=== PATIENT | male | born 1955 | race Caucasian/White ===

== ENCOUNTER → 2016-12-05 | Outpatient (CLI) | payer BC ==
[2016-12-05 17:27] LABS: Basophils # (A) 0.1 k/uL (0-0.2); Basophils % (A) 1 %; CH 32.6; CHCM 33.5; Eosinophils # (A) 0.2 k/uL (0-0.7); Eosinophils % (A) 3 %; HCT 35.4 % (39.0-53.0); HDW 2.67; HGB 11.9 gm/dL (13.0-17.5); Luc # (Auto) 0.29; Luc % (Auto) 4; Lymphocytes # (A) 2.9 k/uL (1.0-4.8); Lymphocytes % (A) 36 %; MCH 32.9 pg (25.0-35.0); MCHC 33.7 g/dL (31.0-37.0); MCV 97.6 fL (80.0-100.0); Mean Platelet Volume 7.5; Monocytes # (A) 0.5 k/uL (0-1.0); Monocytes % (A) 6 %; Neutrophils # (A) 4.1 k/uL (1.3-7.7); Neutrophils % (A) 51 %; RBC 3.63 m/uL (4.30-5.90); RDW 14.2 % (11.5-15.5); WBC 8.1 k/uL (3.8-10.6); WBC (Perox) 8.58
[2016-12-05 17:43] LABS: Anion Gap 10 mmol/L; Blood Urea Nitrogen 46 mg/dL (9-20); Calcium 9.6 mg/dL (8.4-10.2); Carbon Dioxide 28 mmol/L (22-30); Chloride 102 mmol/L (98-107); Glucose 174 mg/dL (74-99); Iron 66 ug/dL (49-181); Magnesium 1.9 mg/dL (1.6-2.3); Non-African American GFR(MDRD) >60 (>60 ml/min/1.73 sqM); Phosphorous 3.6 mg/dL (2.5-4.5); Potassium 4.7 mmol/L (3.5-5.1); Sodium 140 mmol/L (137-145); Uric Acid 7.2 mg/dL (3.5-8.5)
[2016-12-05 17:53] LABS: % Iron Saturation 19.1 % (20-50); Total Iron Binding Capacity 346 ug/dL (261-462)
[2016-12-05 17:58] LABS: Appearance,Urine Clear (Clear); Bacteria,Urine Rare /hpf; Bilirubin,Urine Negative (Negative); Glucose,Urine (UA) Negative (Negative); Ketones,Urine Negative (Negative); Leukocyte Esterase,Urine Large (Negative); Nitrite,Urine Negative (Negative); Particle Count 1687; Protein,Urine Negative (Negative); RBC,Urine 1 /hpf (0-5); Squamous Epithelial Cell,Urine 1 /hpf (0-4); UA Billing (MACRO vs. MICRO) MICRO; Urobilinogen,Urine <2.0 mg/dL (<2.0); WBC,Urine 19 /hpf (0-5)
== END | disposition home or self-care (01) ==
LOC: LABWHC1 16:47
PROVIDERS: ATTEND Internal Medicine Nephrology
DX: N18.2 Chronic kidney disease, stage 2 (mild) (principal); D64.9 Anemia, unspecified; E55.9 Vitamin D deficiency, unspecified; N25.81 Secondary hyperparathyroidism of renal origin; M10.9 Gout, unspecified; N39.0 Urinary tract infection, site not specified
CPT/HCPCS: 36415; 80048; 81001; 82306; 82728; 83540; 83550; 83735; 83970; 84100; 84550; 85025

== ENCOUNTER → 2017-12-16 | Outpatient (CLI) | payer BC ==
[2017-12-16 14:55] LABS: Basophils # (A) 0.1 k/uL (0-0.2); Basophils % (A) 1 %; Eosinophils # (A) 0.2 k/uL (0-0.7); Eosinophils % (A) 2 %; HCT 34.5 % (39.0-53.0); HGB 11.3 gm/dL (13.0-17.5); Lymphocytes # (A) 3.4 k/uL (1.0-4.8); Lymphocytes % (A) 43 %; MCH 29.3 pg (25.0-35.0); MCHC 32.9 g/dL (31.0-37.0); Mean Platelet Volume 7.5; Monocytes # (A) 0.3 k/uL (0-1.0); Monocytes % (A) 4 %; Neutrophils # (A) 3.9 k/uL (1.3-7.7); Neutrophils % (A) 49 %; Platelet Count 215 k/uL (150-450); RBC 3.87 m/uL (4.30-5.90); RDW 14.9 % (11.5-15.5); WBC 7.9 k/uL (3.8-10.6)
[2017-12-16 15:07] LABS: Calcium 10.4 mg/dL (8.4-10.2); Phosphorus 4.3 mg/dL (2.5-4.5); Potassium 4.8 mmol/L (3.5-5.1); Uric Acid 7.5 mg/dL (3.5-8.5)
[2017-12-16 15:12] LABS: Appearance,Urine Clear (Clear); Bacteria,Urine Rare /hpf; Bilirubin,Urine Negative (Negative); Blood,Urine Negative (Negative); Color,Urine Light Yellow; Glucose,Urine (UA) 2+ (Negative); Hyaline Casts,Urine 4 /lpf (0-2); Ketones,Urine Negative (Negative); Leukocyte Esterase,Urine Large (Negative); Mucus,Urine Rare /hpf; Nitrite,Urine Negative (Negative); Protein,Urine Negative (Negative); RBC,Urine 1 /hpf (0-5); Squamous Epithelial Cell,Urine 1 /hpf (0-4); Urobilinogen,Urine <2.0 mg/dL (<2.0); WBC,Urine 7 /hpf (0-5)
[2017-12-16 18:40] LABS: Iron Saturation 11.46 (15.00-50.00)
[2017-12-16 18:49] LABS: Vitamin D 25 Hydroxy 47.8 ng/mL (30.0-100.0)
[2017-12-16 19:00] LABS: Parathyroid Hormone Intact 32.8 pg/mL (14.0-72.0)
== END | disposition home or self-care (01) ==
LOC: LABWHC1 14:17
PROVIDERS: ATTEND Internal Medicine Nephrology
DX: N18.2 Chronic kidney disease, stage 2 (mild) (principal); D64.9 Anemia, unspecified; E55.9 Vitamin D deficiency, unspecified; N25.81 Secondary hyperparathyroidism of renal origin; M10.9 Gout, unspecified; N39.0 Urinary tract infection, site not specified
CPT/HCPCS: 36415; 80048; 81001; 82306; 82728; 83540; 83550; 83735; 83970; 84100; 84550; 85025

== ENCOUNTER → 2018-01-08 | Outpatient (CLI) | payer BC ==
--- NOTE | 2018-01-09 07:09 | US ---
EXAMINATION TYPE: US kidneys/renal and bladder DATE OF EXAM: 01/08/2018 COMPARISON: Renal ultrasound 2012 CLINICAL HISTORY: N18.2 CKD. large body habitus EXAM MEASUREMENTS: Right Kidney: 11.0 x 6.6 x 6.0 cm Left Kidney: 11.3 x 5.8 x 6.4 cm Post Void Residual Volume: 27.4 mL Right Kidney: small cyst mid 1.2 x 1.0 x 0.8 cm Left Kidney: small cyst mid 1.3 x 1.0 x 0.9 cm Bladder: wnl Bilateral Jets seen: No Normal Post Void Residual: Yes There is no evidence for hydronephrosis at this point in time in either kidney. No nephrolithiasis i s seen. Technologist garcia 2 small simple appearing cysts in both kidneys mid pole level. The urinar y bladder is not greatly distended. Bilateral ureteral jets are not seen. IMPRESSION: No hydronephrosis is evident bilaterally.
== END | disposition home or self-care (01) ==
LOC: RADUSWWP 15:16
PROVIDERS: ATTEND Internal Medicine Nephrology
DX: N18.2 Chronic kidney disease, stage 2 (mild) (principal)
CPT/HCPCS: 76770

== ENCOUNTER → 2018-02-18 | Outpatient (CLI) | payer BC ==
[2018-02-18 15:19] LABS: Appearance,Urine Clear (Clear); Bacteria,Urine Rare /hpf; Bilirubin,Urine Negative (Negative); Blood,Urine Negative (Negative); Color,Urine Light Yellow; Glucose,Urine (UA) Negative (Negative); Hyaline Casts,Urine 25 /lpf (0-2); Ketones,Urine Negative (Negative); Leukocyte Esterase,Urine Small (Negative); Mucus,Urine Rare /hpf; Nitrite,Urine Negative (Negative); Protein,Urine Negative (Negative); RBC,Urine <1 /hpf (0-5); Specific Gravity,Urine 1.011 (1.001-1.035); Squamous Epithelial Cell,Urine 1 /hpf (0-4); Urobilinogen,Urine <2.0 mg/dL (<2.0); WBC,Urine 2 /hpf (0-5)
[2018-02-18 15:24] LABS: Calcium 9.4 mg/dL (8.4-10.2); Magnesium 1.7 mg/dL (1.6-2.3); Phosphorus 5.8 mg/dL (2.5-4.5); Potassium 4.7 mmol/L (3.5-5.1); Uric Acid 6.5 mg/dL (3.5-8.5)
[2018-02-18 16:01] LABS: Anisocytosis Slight; Basophils % (A) 1 %; Eosinophils # (A) 0.2 k/uL (0-0.7); Eosinophils % (A) 3 %; HCT 36.7 % (39.0-53.0); HGB 12.2 gm/dL (13.0-17.5); Lymphocytes # (A) 2.5 k/uL (1.0-4.8); Lymphocytes % (A) 38 %; MCH 31.4 pg (25.0-35.0); MCHC 33.3 g/dL (31.0-37.0); Mean Platelet Volume 8.1; Monocytes # (A) 0.4 k/uL (0-1.0); Monocytes % (A) 6 %; Neutrophils # (A) 3.2 k/uL (1.3-7.7); Neutrophils % (A) 49 %; Platelet Count 186 k/uL (150-450); RBC 3.89 m/uL (4.30-5.90); RDW 16.3 % (11.5-15.5); WBC 6.4 k/uL (3.8-10.6)
[2018-02-18 16:03] LABS: MCV 94.2 fL (80.0-100.0)
== END | disposition home or self-care (01) ==
LOC: LABWHC1 14:45
PROVIDERS: ATTEND Internal Medicine Nephrology
DX: N18.2 Chronic kidney disease, stage 2 (mild) (principal); M10.9 Gout, unspecified; N39.0 Urinary tract infection, site not specified
CPT/HCPCS: 36415; 80048; 81001; 82728; 83540; 83550; 83735; 84100; 84550; 85025

== ENCOUNTER 2018-08-28 12:50 | Observation (INO) | payer BC, MEDICARE ==
[2018-08-28] MEDS ORDERED: SODIUM CHLORIDE 0.9% 1,000 ML IV STA (13:09)
[2018-08-28] MEDS ORDERED: NITROGLYCERIN SL TABS 0.4 MG TAB SUBLINGUAL STA (13:09)
[2018-08-28] MEDS ORDERED: ASPIRIN 81 MG PO STA (13:09)
--- NOTE | 2018-08-28 13:43 | ED ---
General Adult HPI <Naresh Trevino - Last Filed: 08/28/18 15:05> - General Source: patient, RN notes reviewed, old records reviewed Mode of arrival: wheelchair Limitations: no limitations <Kaushal Raymundo - Last Filed: 08/28/18 15:50> - General Chief complaint: Chest Pain Stated complaint: abn EKG Time Seen by Provider: 08/28/18 13:03 - History of Present Illness Initial comments: Patient 63-year-old male presented to the emergency room today from his doctor' s office for abnormal EKG. Patient does admit that he's been expressing some chest pain over the last month. Patient states he been trying to follow-up with his length control tester. Patient states he had an appointment this week but was canceled due to the bad weather. Patient states this felt some pressure in his chest that comes and goes. Worse with exertion. He feels short of breath with this. Describes it as pressure. Currently rates it a 2/10. Patient denies any recent fever, chills, back pain, abdominal pain, nausea or vomiting, numbness or tingling, headaches or visual changes, or any other complaints. (Kaushal Raymundo) - Related Data Home Medications Medication Instructions Recorded Confirmed Allopurinol [Zyloprim] 200 mg PO DAILY 01/02/18 08/28/18 Aspirin [Adult Low Dose Aspirin EC] 81 mg PO BID 01/02/18 08/28/18 Cholecalciferol (Vitamin D3) 2,000 unit PO DAILY 01/02/18 08/28/18 [Vitamin D3] Dorzolamide-Timol 2.23%/0.68% 1 drop BOTH EYES BID 01/02/18 08/28/18 [dorzolamide-Timolol 2%/0.5%] Enalapril [Vasotec] 10 mg PO DAILY 01/02/18 08/28/18 Furosemide [Lasix] 20 mg PO HS 01/02/18 08/28/18 Furosemide [Lasix] 40 mg PO DAILY 01/02/18 08/28/18 Insulin Aspart [NovoLOG Flexpen] 70 units SQ AC-TID 01/02/18 08/28/18 Latanoprost [Xalatan 0.005%] 1 drop BOTH EYES HS 01/02/18 08/28/18 Metolazone [Zaroxolyn] 2.5 mg PO MOWEFR 01/02/18 08/28/18 Metoprolol Tartrate [Lopressor] 50 mg PO BID 01/02/18 08/28/18 [place]-3 Fatty Acids/Fish Oil [Fish 1 each PO DAILY 01/02/18 08/28/18 Oil 1,000 mg Softgel] Simvastatin [Zocor] 40 mg PO HS 01/02/18 08/28/18 Insulin Glargine,Hum.rec.anlog 130 unit SQ HS 08/28/18 08/28/18 [Basaglar Kwikpen U-100] Omeprazole 20 mg PO DAILY 08/28/18 08/28/18 Allergies Allergy/AdvReac Type Severity Reaction Status Date / Time No Known Allergies Allergy Verified 08/28/18 13:23 Review of Systems ROS Other: All systems not noted in ROS Statement are negative. <Naresh Trevino - Last Filed: 08/28/18 15:05> ROS Other: All systems not noted in ROS Statement are negative. <Kaushal Raymundo - Last Filed: 08/28/18 15:50> ROS Statement: Those systems with pertinent positive or pertinent negative responses have been documented in the HPI. Past Medical History Past Medical History: Coronary Artery Disease (CAD), Diabetes Mellitus, Hyperlipidemia, Hypertension History of Any Multi-Drug Resistant Organisms: None Reported Past Surgical History: Heart Catheterization With Stent, Orthopedic Surgery Additional Past Surgical History / Comment(s): SHOULDER SURGERY Past Psychological History: No Psychological Hx Reported Smoking Status: Former smoker Past Alcohol Use History: Occasional Past Drug Use History: Marijuana <Kaushal Raymundo - Last Filed: 08/28/18 15:50> General Exam <Naresh Trevino - Last Filed: 08/28/18 15:05> Limitations: no limitations <Kaushal Raymundo - Last Filed: 08/28/18 15:50> - General Exam Comments Initial Comments: General: The patient is awake and alert, in no distress, and does not appear acutely ill. Eye: There is normal conjunctiva bilaterally. No signs of icterus. Ears, nose, mouth and throat: There are moist mucous membranes and no oral lesions. Neck: The neck is supple, there is no tenderness or JVD. Cardiovascular: There is a regular rate and rhythm. No murmur, rub or gallop is appreciated. Respiratory: Lungs are clear to auscultation, respirations are non-labored, breath sounds are equal. No wheezes, stridor, rales, or rhonchi. Gastrointestinal: Soft, non-distended, non-tender abdomen without masses or organomegaly noted. There is no rebound or guarding present. No CVA tenderness Musculoskeletal: Normal ROM, no tenderness. Strength 5/5. Sensation intact. Pulses equal bilaterally 2+. Neurological: A&O x 3. CN II-XII intact, There are no obvious motor or sensory deficits. Coordination appears grossly intact. Speech is normal. Skin: Skin is warm and dry and no rashes or lesions are noted. Psychiatric: Cooperative, appropriate mood & affect, normal judgment. (Kaushal Raymundo) Vital Signs 08/28/18 08/28/18 08/28/18 12:54 13:30 14:00 Temperature 97.9 F Pulse Rate 74 73 73 Respiratory 16 20 20 Rate Blood Pressure 154/88 136/55 129/60 O2 Sat by Pulse 97 98 96 Oximetry 08/28/18 08/28/18 14:30 15:00 Temperature Pulse Rate 72 69 Respiratory 18 22 Rate Blood Pressure 116/72 130/70 O2 Sat by Pulse 95 98 Oximetry Medical Decision Making - Lab Data Result diagrams: 08/28/18 13:17 08/28/18 13:17 <Naresh Trevino - Last Filed: 08/28/18 15:05> - Lab Data Result diagrams: 08/28/18 13:17 08/28/18 13:17 <Kaushal Raymundo - Last Filed: 08/28/18 15:50> - Medical Decision Making Case was discussed with Dr. Hensley who did see this patient earlier and is familiar with him. He will admit. (Naresh Trevino) Patient reexamined at this times no signs of distress. Does admit to some improvement after nitro given here in the emergency room. Patient is resting comfortably. Patient case was discussed with attending Dr. Trevino did discuss with Dr. Hensley who recommends admission with consult cardiology. This was discussed with the patient. He states that his insurance does not cover for observation. Patient is not willing to stay in the admission is for observation. Was discussed in detail about concern that he should stay in the hospital. Patient states he does have an appointment with his length control tester will plan to follow-up over return if any symptoms increase worsen. (Kaushal Raymundo) - Lab Data Lab Results 08/28/18 08/28/18 08/28/18 Range/Units 13:17 13:17 13:17 WBC 9.2 (3.8-10.6) k/uL RBC 3.92 L (4.30-5.90) m/uL Hgb 12.2 L (13.0-17.5) gm/dL Hct 37.3 L (39.0-53.0) % MCV 94.9 (80.0-100.0) fL MCH 31.0 (25.0-35.0) pg MCHC 32.6 (31.0-37.0) g/dL RDW 14.4 (11.5-15.5) % Plt Count 169 (150-450) k/uL Neutrophils % 61 % Lymphocytes % 26 % Monocytes % 7 % Eosinophils % 2 % Basophils % 1 % Neutrophils # 5.6 (1.3-7.7) k/uL Lymphocytes # 2.4 (1.0-4.8) k/uL Monocytes # 0.6 (0-1.0) k/uL Eosinophils # 0.2 (0-0.7) k/uL Basophils # 0.1 (0-0.2) k/uL PT (9.0-12.0) sec INR (<1.2) APTT (22.0-30.0) sec Sodium 143 (137-145) mmol/L Potassium 4.4 (3.5-5.1) mmol/L Chloride 106 (98-107) mmol/L Carbon Dioxide 26 (22-30) mmol/L Anion Gap 11 mmol/L BUN 50 H (9-20) mg/dL Creatinine 1.25 (0.66-1.25) mg/dL Est GFR (CKD-EPI)AfAm 72 (>60 ml/min/1.73 sqM) Est GFR (CKD-EPI)NonAf 62 (>60 ml/min/1.73 sqM) Glucose 151 H (74-99) mg/dL Calcium 10.3 H (8.4-10.2) mg/dL Magnesium 1.7 (1.6-2.3) mg/dL Total Bilirubin 0.7 (0.2-1.3) mg/dL AST 106 H (17-59) U/L ALT 114 H (21-72) U/L Alkaline Phosphatase 89 (38-126) U/L Total Creatine Kinase 234 H (55-170) U/L CK-MB (CK-2) 1.7 (0.0-2.4) ng/mL CK-MB (CK-2) Rel Index 0.7 Troponin I 0.029 (0.000-0.034) ng/mL Total Protein 7.3 (6.3-8.2) g/dL Albumin 4.1 (3.5-5.0) g/dL 08/28/18 Range/Units 13:17 WBC (3.8-10.6) k/uL RBC (4.30-5.90) m/uL Hgb (13.0-17.5) gm/dL Hct (39.0-53.0) % MCV (80.0-100.0) fL MCH (25.0-35.0) pg MCHC (31.0-37.0) g/dL RDW (11.5-15.5) % Plt Count (150-450) k/uL Neutrophils % % Lymphocytes % % Monocytes % % Eosinophils % % Basophils % % Neutrophils # (1.3-7.7) k/uL Lymphocytes # (1.0-4.8) k/uL Monocytes # (0-1.0) k/uL Eosinophils # (0-0.7) k/uL Basophils # (0-0.2) k/uL PT 10.2 (9.0-12.0) sec INR 0.9 (<1.2) APTT 24.0 (22.0-30.0) sec Sodium (137-145) mmol/L Potassium (3.5-5.1) mmol/L Chloride (98-107) mmol/L Carbon Dioxide (22-30) mmol/L Anion Gap mmol/L BUN (9-20) mg/dL Creatinine (0.66-1.25) mg/dL Est GFR (CKD-EPI)AfAm (>60 ml/min/1.73 sqM) Est GFR (CKD-EPI)NonAf (>60 ml/min/1.73 sqM) Glucose (74-99) mg/dL Calcium (8.4-10.2) mg/dL Magnesium (1.6-2.3) mg/dL Total Bilirubin (0.2-1.3) mg/dL AST (17-59) U/L ALT (21-72) U/L Alkaline Phosphatase (38-126) U/L Total Creatine Kinase (55-170) U/L CK-MB (CK-2) (0.0-2.4) ng/mL CK-MB (CK-2) Rel Index Troponin I (0.000-0.034) ng/mL Total Protein (6.3-8.2) g/dL Albumin (3.5-5.0) g/dL Disposition <Naresh Trevino - Last Filed: 08/28/18 15:05> Is patient prescribed a controlled substance at d/c from ED?: No Time of Disposition: 15:30 <Kaushal Raymundo - Last Filed: 08/28/18 15:50> Clinical Impression: Chest pain Disposition: ADMITTED IP TO THIS HOSP Condition: Stable Referrals: Jake Hensley MD [Primary Care Provider] - 1-2 days
--- NOTE | 2018-08-28 13:45 | XR ---
EXAMINATION TYPE: XR chest 2V DATE OF EXAM: 08/28/2018 COMPARISON: 12/29/2015 TECHNIQUE: PA and lateral views submitted. HISTORY: Chest pain FINDINGS: The lungs are clear and there is no pneumothorax, pleural effusion, or focal pneumonia. Heart is en larged and stable. Arthropathy of the shoulders. No overt failure. IMPRESSION: 1. No acute process.
[2018-08-28 13:52] LABS: Basophils # (A) 0.1 k/uL (0-0.2); Basophils % (A) 1 %; Eosinophils # (A) 0.2 k/uL (0-0.7); Eosinophils % (A) 2 %; HCT 37.3 % (39.0-53.0); HGB 12.2 gm/dL (13.0-17.5); Lymphocytes # (A) 2.4 k/uL (1.0-4.8); Lymphocytes % (A) 26 %; MCHC 32.6 g/dL (31.0-37.0); MCV 94.9 fL (80.0-100.0); Mean Platelet Volume 8.3; Monocytes # (A) 0.6 k/uL (0-1.0); Monocytes % (A) 7 %; Neutrophils # (A) 5.6 k/uL (1.3-7.7); Neutrophils % (A) 61 %; Platelet Count 169 k/uL (150-450); RBC 3.92 m/uL (4.30-5.90); RDW 14.4 % (11.5-15.5); WBC 9.2 k/uL (3.8-10.6)
[2018-08-28 14:04] LABS: Albumin 4.1 g/dL (3.5-5.0); Calcium 10.3 mg/dL (8.4-10.2); Magnesium 1.7 mg/dL (1.6-2.3); Potassium 4.4 mmol/L (3.5-5.1); Total Bilirubin 0.7 mg/dL (0.2-1.3); Total Protein 7.3 g/dL (6.3-8.2)
[2018-08-28 14:06] LABS: INR 0.9 (<1.2); Prothrombin Time 10.2 sec (9.0-12.0)
[2018-08-28 14:32] LABS: Creatine Kinase MB 1.7 ng/mL (0.0-2.4); Troponin I 0.029 ng/mL (0.000-0.034)
[2018-08-28] MEDS ORDERED: NITROGLYCERIN SL TABS 0.4 MG TAB SUBLINGUAL PRN (15:32)
[2018-08-28] MEDS ORDERED: HEPARIN SODIUM,PORCINE 5,000 UNIT/ML 1 ML VIAL IV ONE (15:32)
[2018-08-28] MEDS ORDERED: HEPARIN SOD,PORK IN 0.45% NACL 25,000 UNIT in 0.45% NACL 1 250ML.BAG IV SCH (15:45)
[2018-08-28 18:04] VITALS: BMI 43.9
[2018-08-28 20:15] LABS: Creatine Kinase MB 1.8 ng/mL (0.0-2.4); Troponin I 0.025 ng/mL (0.000-0.034)
[2018-08-28 20:41] LABS: Glucose,Whole Blood 181 mg/dL (75-99)
[2018-08-28] MEDS: ASPIRIN 81 MG PO SCH (20:44)
[2018-08-28] MEDS: METOPROLOL TARTRATE 50 MG TAB PO SCH (20:44)
[2018-08-28] MEDS ORDERED: FUROSEMIDE 20 MG TAB PO SCH (21:00)
[2018-08-28] MEDS ORDERED: LATANOPROST 0.005% OPHTH DROPS 2.5 ML BTL BOTH EYES SCH (21:00)
[2018-08-28] MEDS ORDERED: ATORVASTATIN 20 MG TAB PO SCH (21:00)
[2018-08-28] MEDS ORDERED: INSULIN DETEMIR 100 UNIT/ML 10 ML VIAL SQ SCH (21:00)
[2018-08-28] MEDS: DORZOLAMIDE-TIMOLOL 2.23%/0.68 10ML BTL BOTH EYES SCH (23:04)
[2018-08-29 01:28] LABS: Cholesterol 176 mg/dL (<200); HDL Cholesterol 56 mg/dL (40-60); LDL Cholesterol,Calculated 86 mg/dL (0-99); Triglycerides 170 mg/dL (<150)
[2018-08-29 01:32] LABS: Hemoglobin A1C 9.6 % (4.0-6.0)
[2018-08-29 01:44] LABS: Creatine Kinase MB 1.5 ng/mL (0.0-2.4); Troponin I 0.026 ng/mL (0.000-0.034)
[2018-08-29 04:31] LABS: Appearance,Urine Clear (Clear); Bilirubin,Urine Negative (Negative); Blood,Urine Negative (Negative); Color,Urine Yellow; Glucose,Urine (UA) Negative (Negative); Ketones,Urine Negative (Negative); Leukocyte Esterase,Urine Negative (Negative); Nitrite,Urine Negative (Negative); PH, Urine 5.5 (5.0-8.0); Protein,Urine Negative (Negative); Specific Gravity,Urine 1.012 (1.001-1.035); Urobilinogen,Urine <2.0 mg/dL (<2.0)
[2018-08-29 06:51] LABS: Glucose,Whole Blood 183 mg/dL (75-99)
[2018-08-29] MEDS ORDERED: PANTOPRAZOLE 40 MG TABLET PO SCH (07:30)
[2018-08-29] MEDS ORDERED: LISINOPRIL 20 MG TAB PO SCH (09:00)
[2018-08-29] MEDS ORDERED: FUROSEMIDE 40 MG TAB PO SCH (09:00)
[2018-08-29] MEDS ORDERED: ASPIRIN 325 MG TAB PO SCH (09:00)
[2018-08-29] MEDS ORDERED: ALLOPURINOL 100 MG TAB PO SCH (09:00)
[2018-08-29] MEDS ORDERED: METOLAZONE 2.5 MG TAB PO SCH (09:00)
[2018-08-29] MEDS ORDERED: NON-FORMULARY DRUG (Omega-3 Fatty Acids/Fish Oil [Fish Oil 1,000 Mg Softgel] 1 EACH) PO SCH (09:00)
[2018-08-29] MEDS: INSULIN ASPART 100 UNIT/ML 1 ML 10 ML VIAL SQ SCH ×2 (09:13→13:01)
[2018-08-29] MEDS: ASPIRIN 81 MG PO SCH (09:14)
[2018-08-29] MEDS: DORZOLAMIDE-TIMOLOL 2.23%/0.68 10ML BTL BOTH EYES SCH (09:14)
[2018-08-29] MEDS: METOPROLOL TARTRATE 50 MG TAB PO SCH (09:14)
[2018-08-29] MEDS ORDERED: ISOSORBIDE MONONITRATE ER 60 MG TAB.ER.24H PO SCH (09:15)
--- NOTE | 2018-08-29 09:46 | P.CRDCN ---
History of Present Illness History of present illness: This is a pleasant 63-year-old male past medical history significant for coronary artery disease status post angioplasty to the circumflex in 2016 and the diagonal branch in 2007, hypertension, dyslipidemia, diabetes mellitus, chronic kidney disease, former nicotine dependence and obesity. He follows in the office with Dr. Lamar. We have been asked to see him in consultation for chest discomfort. He states for the previous 2-3 months he has felt increasing instances and episodes of a tight sensation in the midsternal region with radiation in the precordial region and left shoulder at times. He also becomes short of breath with exertion. He states these symptoms come on whenever he does any sort of activity and improve her breast. This has been going on for over 2 months. However he presented to Dr. Hensley's office yesterday and an EKG was obtained. He was sent to ED for evaluation. He is seen and examined laying flat in bed with CPAP machine in place. He denies any chest pain since coming to the hospital, however he states he hasn't gotten out of bed and exerted himself at all. He has seen Dr. Lamar in the past with similar complaints and maximal medical therapy has been recommended secondary to his chronic kidney disease. EKG reveals sinus mechanism with T-wave inversions noted in the lateral leads. When compared to previous EKGs he did have these changes in leads 1 and aVL previously however leads V5 and V6 appear changed. Chest x-ray is negative for any acute cardiopulmonary process. Laboratory data reviewed, LDL 86, HDL 56, WBC 9.2, hemoglobin 12.2, platelets 169, sodium 143, potassium 4.4, creatinine 1.25 with a GFR of 62, magnesium 1.7 , cardiac enzymes negative 3. Liver enzymes elevated. Current cardiac medications include aspirin 81 mg twice a day, enalapril 10 mg daily, Lasix 40 mg in the morning and 20 mg at night, metoprolol 2.5 mg Saturday, Lopressor 50 mg twice a day and simvastatin 40 mg daily. Most recent stress test performed in the office May 2017 with a Lexiscan stress test which was negative for reversible cardiac ischemia. Ejection fraction 55% on echo obtained at that time as well. At the time of my exam: CONSTITUTIONAL: Denies fever. Denies chills. EYES: Denies blurred vision. Denies vision changes. Denies eye pain. EARS, NOSE, MOUTH & THROAT: Denies headache. Denies sore throat. Denies ear pain. CARDIOVASCULAR: Denies chest pain. Denies shortness of breath. Denies orthopnea. Denies PND. Denies palpitations. RESPIRATORY: Denies cough. GASTROINTESTINAL: Denies abdominal pain. Denies diarrhea. Denies constipation. Denies nausea. Denies vomiting. MUSCULOSKELETAL: Denies myalgias. INTEGUMENTARY: Denies pruitis. Denies rash. NEUROLOGIC: Denies numbness. Denies tingling. Denies weakness. PSYCHIATRIC: Denies anxiety. Denies depression. ENDOCRINE: Denies fatigue. Denies weight change. Denies polydipsia. Denies polyurina. GENITOURINARY: Denies burning, hematuria or urgency with micturation. HEMATOLOGIC: Denies history of anemia. Denies bleeding. Blood pressure 157/97 heart rate 79 afebrile maintaining oxygen saturation on room air GENERAL: This is a 63-year-old male in no apparent distress at the time of my examination. Obese. HEENT: Head is atraumatic, normocephalic. Pupils are equal, round. Sclerae anicteric. Conjunctivae are clear. Mucous membranes of the mouth are moist. Neck is supple. There is no jugular venous distention. No carotid bruit is heard. LUNGS: Clear to auscultation no wheezes, rales or rhonchi. No chest wall tenderness is noted on palpation or with deep breathing. Diminished bilaterally. HEART: Regular rate and rhythm with systolic ejection murmur at the left sternal border, no rubs or gallops. S1 and S2 heard. ABDOMEN: Soft, nontender. Bowel sounds are heard. No organomegaly noted. Obese. EXTREMITIES: Trace bilateral lower extremity nonpitting peripheral edema and no calf tenderness noted. VASCULAR: Radial and dorsalis pedis pulses palpated, no evidence of clubbing. NEUROLOGIC: Patient is awake, alert and oriented x3. ASSESSMENT Unstable angina Hypertension Dyslipidemia Chronic kidney disease History of coronary artery disease status post PCI of circumflex and diagonal branch Diabetes mellitus Former nicotine dependence Obesity, BMI 44 PLAN An acute coronary event has been ruled out. Discussed in detail with his primary ground water contractor and he has recommended maximizing his medical therapy and increasing activity to assess for reoccurrence of chest discomfort. Check NTproBNP. Add on imdur 60 mg daily. Increase atorvastatin to 80 mg daily. If he is chest pain free throughout the day today he may be discharged home to follow up with Dr. Lamar in the office Saturday. If he has chest pain on maximum therapy we will consider coronary angiography with the understanding that the procedure may worse his chronic kidney disease. Thank you kindly for this consultation. Nurse Practitioner note has been reviewed, I agree with a documented findings and plan of care. Patient was seen and examined. Past Medical History Past Medical History: Coronary Artery Disease (CAD), Diabetes Mellitus, Hyperlipidemia, Hypertension History of Any Multi-Drug Resistant Organisms: None Reported Past Surgical History: Heart Catheterization With Stent, Orthopedic Surgery Additional Past Surgical History / Comment(s): SHOULDER SURGERY Date of Last Stent Placement:: 2005 Past Psychological History: No Psychological Hx Reported Smoking Status: Former smoker Past Alcohol Use History: Occasional Past Drug Use History: Marijuana Medications and Allergies Home Medications Medication Instructions Recorded Confirmed Type Allopurinol [Zyloprim] 200 mg PO DAILY 01/02/18 08/28/18 History Aspirin [Adult Low Dose Aspirin EC] 81 mg PO BID 01/02/18 08/28/18 History Cholecalciferol (Vitamin D3) 2,000 unit PO DAILY 01/02/18 08/28/18 History [Vitamin D3] Dorzolamide-Timol 2.23%/0.68% 1 drop BOTH EYES BID 01/02/18 08/28/18 History [dorzolamide-Timolol 2%/0.5%] Enalapril [Vasotec] 10 mg PO DAILY 01/02/18 08/28/18 History Furosemide [Lasix] 20 mg PO HS 01/02/18 08/28/18 History Furosemide [Lasix] 40 mg PO DAILY 01/02/18 08/28/18 History Insulin Aspart [NovoLOG Flexpen] 70 units SQ AC-TID 01/02/18 08/28/18 History Latanoprost [Xalatan 0.005%] 1 drop BOTH EYES HS 01/02/18 08/28/18 History Metolazone [Zaroxolyn] 2.5 mg PO MOWEFR 01/02/18 08/28/18 History Metoprolol Tartrate [Lopressor] 50 mg PO BID 01/02/18 08/28/18 History [place]-3 Fatty Acids/Fish Oil [Fish 1 each PO DAILY 01/02/18 08/28/18 History Oil 1,000 mg Softgel] Simvastatin [Zocor] 40 mg PO HS 01/02/18 08/28/18 History Insulin Glargine,Hum.rec.anlog 130 unit SQ HS 08/28/18 08/28/18 History [Basaglar Jaquelinepen U-100] Omeprazole 20 mg PO DAILY 08/28/18 08/28/18 History Allergies Allergy/AdvReac Type Severity Reaction Status Date / Time No Known Allergies Allergy Verified 08/28/18 13:23 Physical Exam Vitals: Vital Signs Temp Pulse Pulse Resp BP BP Pulse Ox 08/29/18 04:00 78 16 08/29/18 03:41 98.1 F 78 16 176/90 96 08/28/18 23:41 98.3 F 71 18 182/82 96 08/28/18 23:40 72 18 08/28/18 20:00 98.4 F 72 18 161/72 96 08/28/18 17:15 97.9 F 77 18 160/81 97 08/28/18 17:00 77 17 165/71 98 08/28/18 16:30 71 14 163/97 98 08/28/18 16:00 76 11 L 143/76 98 08/28/18 15:30 71 22 126/49 98 08/28/18 15:00 69 22 130/70 98 08/28/18 14:30 72 18 116/72 95 08/28/18 14:00 73 20 129/60 96 08/28/18 13:30 73 20 136/55 98 08/28/18 12:54 97.9 F 74 16 154/88 97 Intake and Output 08/28/18 08/29/18 08/29/18 22:59 06:59 14:59 Intake Total 72.167 Balance 72.167 Intake: Intake, IV Titration 72.167 Amount Heparin Sod,Pork in 0.45% 72.167 NaCl 25,000 unit In 0.45 % NaCl 1 250ml.bag @ 7. 399 UNITS/KG/HR 10 mls/hr IV .Q24H [facility] Rx#: [id number] Other: Voiding Method Toilet Toilet # Voids 2 Results 08/28/18 13:17 08/28/18 13:17 Cardiac Enzymes 08/28/18 08/28/18 08/28/18 Range/Units 13:17 13:17 19:22 AST 106 H (17-59) U/L CK-MB (CK-2) 1.7 1.8 (0.0-2.4) ng/mL Troponin I 0.029 0.025 (0.000-0.034) ng/mL 08/29/18 Range/Units 00:52 AST (17-59) U/L CK-MB (CK-2) 1.5 (0.0-2.4) ng/mL Troponin I 0.026 (0.000-0.034) ng/mL Coagulation 08/28/18 08/28/18 08/29/18 Range/Units 13:17 22:52 06:18 PT 10.2 (9.0-12.0) sec APTT 24.0 44.2 H 46.9 H (22.0-30.0) sec Lipids 08/29/18 Range/Units 00:52 Triglycerides 170 H (<150) mg/dL Cholesterol 176 (<200) mg/dL HDL Cholesterol 56 (40-60) mg/dL CBC 08/28/18 Range/Units 13:17 WBC 9.2 (3.8-10.6) k/uL RBC 3.92 L (4.30-5.90) m/uL Hgb 12.2 L (13.0-17.5) gm/dL Hct 37.3 L (39.0-53.0) % Plt Count 169 (150-450) k/uL Comprehensive Metabolic Panel 08/28/18 Range/Units 13:17 Sodium 143 (137-145) mmol/L Potassium 4.4 (3.5-5.1) mmol/L Chloride 106 (98-107) mmol/L Carbon Dioxide 26 (22-30) mmol/L BUN 50 H (9-20) mg/dL Creatinine 1.25 (0.66-1.25) mg/dL Glucose 151 H (74-99) mg/dL Calcium 10.3 H (8.4-10.2) mg/dL AST 106 H (17-59) U/L ALT 114 H (21-72) U/L Alkaline Phosphatase 89 (38-126) U/L Total Protein 7.3 (6.3-8.2) g/dL Albumin 4.1 (3.5-5.0) g/dL Current Medications Generic Name Dose Route Start Last Admin Trade Name Christiano PRN Reason Stop Dose Admin Allopurinol 200 mg 08/29/18 09:00 Zyloprim PO DAILY KIKI Aspirin 81 mg 08/28/18 21:00 08/28/18 20:44 Aspirin PO 81 mg BID KIKI Administration Atorvastatin Calcium 20 mg 08/28/18 21:00 08/28/18 20:44 Lipitor PO 20 mg HS KIKI Administration Cholecalciferol 2,000 unit 08/29/18 12:00 Vitamin D3 PO 1200 KIKI Dorzolamide/Timolol 1 drops 08/28/18 21:00 08/28/18 23:04 Cosopt BOTH EYES 1 drops BID KIKI Administration Furosemide 20 mg 08/28/18 21:00 08/28/18 20:44 Lasix PO 20 mg HS KIKI Administration Furosemide 40 mg 08/29/18 09:00 Lasix PO DAILY KIKI Sodium Chloride 1,000 mls @ 20 mls/hr 08/28/18 13:09 08/28/18 13:24 Saline 0.9% IV 08/29/18 13:08 20 mls/hr .Q24H STA Administration Heparin Sodium/Sodium Chloride 250 mls @ 10 mls/hr 08/28/18 15:45 08/29/18 00 :03 25,000 unit/ Sodium Chloride IV 9.399 units/kg/hr .Q24H KIKI 12.7 mls/hr Titration Protocol 7.399 UNITS/KG/HR Insulin Aspart 70 unit 08/29/18 07:30 Novolog SQ AC-TID [facility] Insulin Detemir 130 unit 08/28/18 21:00 08/28/18 21:12 Levemir SQ 130 unit HS [facility] Administration Latanoprost 1 drops 08/28/18 21:00 08/28/18 23:04 Xalatan 0.005% BOTH EYES 1 drops HS [facility] Administration Lisinopril 20 mg 08/29/18 09:00 Zestril PO DAILY [facility] Metolazone 2.5 mg 08/29/18 09:00 Zaroxolyn PO [id number] [facility] Metoprolol Tartrate 50 mg 08/28/18 21:00 08/28/18 20:44 Lopressor PO 50 mg BID KIKI Administration Nitroglycerin 0.4 mg 08/28/18 15:32 Nitrostat SUBLINGUAL Q5M PRN Chest Pain Pantoprazole Sodium 40 mg 08/29/18 07:30 Protonix PO AC-BRKFST [facility] Intake and Output 08/28/18 08/29/18 08/29/18 22:59 06:59 14:59 Intake Total 72.167 Balance 72.167 Intake: Intake, IV Titration 72.167 Amount Heparin Sod,Pork in 0.45% 72.167 NaCl 25,000 unit In 0.45 % NaCl 1 250ml.bag @ 7. 399 UNITS/KG/HR 10 mls/hr IV .Q24H [facility] Rx#: [id number] Other: Voiding Method Toilet Toilet # Voids 2 08/28/18 13:17 08/28/18 13:17
[2018-08-29 12:00] LABS: Glucose,Whole Blood 185 mg/dL (75-99)
[2018-08-29] MEDS ORDERED: CHOLECALCIFEROL 1,000 UNIT TAB PO SCH (12:00)
[2018-08-29 12:06] VITALS: BP 107/66; PULSE 69; RESP 16; TEMP 97.9
[2018-08-29] MEDS ORDERED: ATORVASTATIN 80 MG TAB PO SCH (21:00)
--- NOTE | 2018-08-30 09:15 | ECHOF ---
Referral Reason:cp, sob MEASUREMENTS -------- HEIGHT: 175.3 cm WEIGHT: 135.2 kg BP: IVSd: 1.4 cm (0.6 - 1.1) LVIDd: 5.1 cm (3.9 - 5.3) LVPWd: 1.5 cm (0.6 - 1.1) IVSs: 1.4 cm LVIDs: 3.6 cm LVPWs: 1.5 cm Ao Diam: 3.3 cm (2.0 - 3.7) LA Diam: 3.7 cm (2.7 - 3.8) EPSS: 0.3 cm MV E Art: 0.75 m/s MV DecT: 176 ms MV A Art: 0.77 m/s MV E/A Ratio: 0.97 RAP: 5.00 mmHg RVSP: 14.00 mmHg MV EF SLOPE: 58.37 mm/s (70 - 150) MV EXCURSION: 16.40 mm (> 18.000) FINDINGS -------- Sinus rhythm. Morbid Obesity This was a techncally difficult study with suboptimal views, , Lumason utilized for enhancement of im ages. The left ventricular size is normal. There is moderate concentric left ventricular hypertrophy. O verall left ventricular systolic function is normal with, an EF between 55 - 60 %. The right ventricle is normal in size. The left atrial size is normal. The right atrial size is normal. 5.0mg OF Lumason UTLIZED: 2 OR MORE WALL SEGMENTS NOT VISUALIZED. The aortic valve was not well visualized. Mild mitral regurgitation is present. Mild tricuspid regurgitation present. There is no evidence of pulmonary hypertension. The right v entricular systolic pressure, as measured by Doppler, is 14.00mmHg. The pulmonic valve was not well visualized. The aortic root size is normal. There is no pericardial effusion. CONCLUSIONS -------- 1. Morbid Obesity 2. This was a techncally difficult study with suboptimal views, , Lumason utilized for enhancement of images. 3. The left ventricular size is normal. 4. There is moderate concentric left ventricular hypertrophy. 5. Overall left ventricular systolic function is normal with, an EF between 55 - 60 %. 6. The right ventricle is normal in size. 7. The left atrial size is normal. 8. The right atrial size is normal. 9. 5.0mg OF Lumason UTLIZED: 2 OR MORE WALL SEGMENTS NOT VISUALIZED. 10. The aortic valve was not well visualized. 11. Mild mitral regurgitation is present. 12. Mild tricuspid regurgitation present. 13. There is no evidence of pulmonary hypertension. 14. The right ventricular systolic pressure, as measured by Doppler, is 14.00mmHg. 15. The pulmonic valve was not well visualized. 16. The aortic root size is normal. 17. There is no pericardial effusion. BOX TRUCK WASHER: Radha Bassett RDCS
--- NOTE | 2018-09-01 20:48 | P.HPIM ---
History of Present Illness H&P Date: 08/29/18 Chief Complaint: Chest pain This is a history of physical 63-year-old white male with poorly controlled diabetes who has history of recurrent chronic bronchitis, who saw me yesterday office complaining of dysuria with elements of sternal and substernal chest pressure. Shortness breath is noted. No nausea and question element of diaphoresis was stated. EKG was done Office which did show nonspecific lateral changes, but given his multiple comorbidities he was appropriately evaluated in the emergency room and admitted for chest pain question angina element. The patient is nonsmoker. Review of Systems Constitutional: Reports weakness Eyes: denies blurred vision, denies pain Ears, nose, mouth and throat: Denies headache, Denies sore throat Cardiovascular: Reports chest pain, Denies leg edema, Denies syncope Respiratory: Denies cough Gastrointestinal: Denies abdominal pain, Denies diarrhea, Denies nausea, Denies vomiting Musculoskeletal: Denies myalgias Integumentary: Denies pruritus, Denies rash Past Medical History Past Medical History: Coronary Artery Disease (CAD), Diabetes Mellitus, Hyperlipidemia, Hypertension History of Any Multi-Drug Resistant Organisms: None Reported Past Surgical History: Heart Catheterization With Stent, Orthopedic Surgery Additional Past Surgical History / Comment(s): SHOULDER SURGERY Date of Last Stent Placement:: 2005 Past Psychological History: No Psychological Hx Reported Smoking Status: Former smoker Past Alcohol Use History: Occasional Past Drug Use History: Marijuana Medications and Allergies Home Medications Medication Instructions Recorded Confirmed Type Allopurinol [Zyloprim] 200 mg PO DAILY 01/02/18 08/28/18 History Aspirin [Adult Low Dose Aspirin EC] 81 mg PO BID 01/02/18 08/28/18 History Cholecalciferol (Vitamin D3) 2,000 unit PO DAILY 01/02/18 08/28/18 History [Vitamin D3] Dorzolamide-Timol 2.23%/0.68% 1 drop BOTH EYES BID 01/02/18 08/28/18 History [dorzolamide-Timolol 2%/0.5%] Enalapril [Vasotec] 10 mg PO DAILY 01/02/18 08/28/18 History Furosemide [Lasix] 20 mg PO HS 01/02/18 08/28/18 History Furosemide [Lasix] 40 mg PO DAILY 01/02/18 08/28/18 History Insulin Aspart [NovoLOG Flexpen] 70 units SQ AC-TID 01/02/18 08/28/18 History Latanoprost [Xalatan 0.005%] 1 drop BOTH EYES HS 01/02/18 08/28/18 History Metolazone [Zaroxolyn] 2.5 mg PO MOWEFR 01/02/18 08/28/18 History Metoprolol Tartrate [Lopressor] 50 mg PO BID 01/02/18 08/28/18 History [place]-3 Fatty Acids/Fish Oil [Fish 1 each PO DAILY 01/02/18 08/28/18 History Oil 1,000 mg Softgel] Simvastatin [Zocor] 40 mg PO HS 01/02/18 08/28/18 History Insulin Glargine,Hum.rec.anlog 130 unit SQ HS 08/28/18 08/28/18 History [Basaglar Kwikpen U-100] Omeprazole 20 mg PO DAILY 08/28/18 08/28/18 History Allergies Allergy/AdvReac Type Severity Reaction Status Date / Time No Known Allergies Allergy Verified 08/28/18 13:23 Physical Exam Vitals: Vital Signs Temp Pulse Pulse Resp BP BP Pulse Ox 08/29/18 04:00 78 16 08/29/18 03:41 98.1 F 78 16 176/90 96 08/28/18 23:41 98.3 F 71 18 182/82 96 08/28/18 23:40 72 18 08/28/18 20:00 98.4 F 72 18 161/72 96 08/28/18 17:15 97.9 F 77 18 160/81 97 08/28/18 17:00 77 17 165/71 98 08/28/18 16:30 71 14 163/97 98 08/28/18 16:00 76 11 L 143/76 98 08/28/18 15:30 71 22 126/49 98 08/28/18 15:00 69 22 130/70 98 08/28/18 14:30 72 18 116/72 95 08/28/18 14:00 73 20 129/60 96 08/28/18 13:30 73 20 136/55 98 08/28/18 12:54 97.9 F 74 16 154/88 97 Intake and Output 08/28/18 08/29/18 08/29/18 22:59 06:59 14:59 Intake Total 72.167 Balance 72.167 Intake: Intake, IV Titration 72.167 Amount Heparin Sod,Pork in 0.45% 72.167 NaCl 25,000 unit In 0.45 % NaCl 1 250ml.bag @ 7. 399 UNITS/KG/HR 10 mls/hr IV .Q24H KIKI Rx#: [id number] Other: Voiding Method Toilet Toilet # Voids 2 - Constitutional General appearance: obese - EENT Eyes: EOMI - Neck Neck: no lymphadenopathy - Respiratory Respiratory: bilateral: diminished - Cardiovascular Rhythm: regular Heart sounds: normal: S1, S2 Abnormal Heart Sounds: no S3 Gallop - Gastrointestinal General gastrointestinal: soft, no splenomegaly, no tenderness - Integumentary Integumentary: no cyanotic - Neurologic Neurologic: CNII-XII intact - Psychiatric Psychiatric: A&O x's 3, appropriate affect Results CBC & Chem 7: 08/28/18 13:17 08/28/18 13:17 Labs: Abnormal Lab Results - Last 24 Hours (Table) 08/28/18 08/28/18 08/28/18 Range/Units 13:17 13:17 13:17 RBC 3.92 L (4.30-5.90) m/uL Hgb 12.2 L (13.0-17.5) gm/dL Hct 37.3 L (39.0-53.0) % APTT (22.0-30.0) sec BUN 50 H (9-20) mg/dL Glucose 151 H (74-99) mg/dL POC Glucose (mg/dL) (75-99) mg/dL Hemoglobin A1c (4.0-6.0) % Calcium 10.3 H (8.4-10.2) mg/dL AST 106 H (17-59) U/L ALT 114 H (21-72) U/L Total Creatine Kinase 234 H (55-170) U/L Triglycerides (<150) mg/dL 08/28/18 08/28/18 08/28/18 Range/Units 19:22 19:22 20:34 RBC (4.30-5.90) m/uL Hgb (13.0-17.5) gm/dL Hct (39.0-53.0) % APTT (22.0-30.0) sec BUN (9-20) mg/dL Glucose (74-99) mg/dL POC Glucose (mg/dL) 181 H (75-99) mg/dL Hemoglobin A1c 9.6 H (4.0-6.0) % Calcium (8.4-10.2) mg/dL AST (17-59) U/L ALT (21-72) U/L Total Creatine Kinase 228 H (55-170) U/L Triglycerides (<150) mg/dL 08/28/18 08/29/18 08/29/18 Range/Units 22:52 00:52 00:52 RBC (4.30-5.90) m/uL Hgb (13.0-17.5) gm/dL Hct (39.0-53.0) % APTT 44.2 H (22.0-30.0) sec BUN (9-20) mg/dL Glucose (74-99) mg/dL POC Glucose (mg/dL) (75-99) mg/dL Hemoglobin A1c (4.0-6.0) % Calcium (8.4-10.2) mg/dL AST (17-59) U/L ALT (21-72) U/L Total Creatine Kinase 217 H (55-170) U/L Triglycerides 170 H (<150) mg/dL 08/29/18 08/29/18 Range/Units 06:18 06:49 RBC (4.30-5.90) m/uL Hgb (13.0-17.5) gm/dL Hct (39.0-53.0) % APTT 46.9 H (22.0-30.0) sec BUN (9-20) mg/dL Glucose (74-99) mg/dL POC Glucose (mg/dL) 183 H (75-99) mg/dL Hemoglobin A1c (4.0-6.0) % Calcium (8.4-10.2) mg/dL AST (17-59) U/L ALT (21-72) U/L Total Creatine Kinase (55-170) U/L Triglycerides (<150) mg/dL Thrombosis Risk Factor Assmnt - Choose All That Apply Each Factor Represents 1 point: Obesity (BMI >25) Each Risk Factor Represents 2 Points: Age 61-74 years Thrombosis Risk Factor Assessment Total Risk Factor Score: 3 Thrombosis Risk Factor Assessment Level: Moderate Risk Assessment and Plan (1) Uncontrolled diabetes mellitus Current Visit: Yes Status: Acute Code(s): E11.65 - TYPE 2 DIABETES MELLITUS WITH HYPERGLYCEMIA SNOMED Code(s): 83150631 (2) Chest pain Current Visit: Yes Status: Acute Code(s): R07.9 - CHEST PAIN, UNSPECIFIED SNOMED Code(s): 21385170 Plan: Rule out myocardial infarction. Reconcile medications. Mostly need to be placed on sliding scale. Question need for stress testing today. Consult cardiology. Prognosis somewhat guarded secondary term is supple comorbidities. Otherwise, the patient is full code. Time with Patient: Greater than 30
== END 2018-08-29 15:45 | disposition home or self-care (01) ==
LOC: EC 12:50 → 1SOBS 15:05
PROVIDERS: ADMIT Family Medicine; ATTEND Family Medicine
DX: I25.110 Atherosclerotic heart disease of native coronary artery with unstable angina pectoris (principal); I12.9 Hypertensive chronic kidney disease with stage 1 through stage 4 chronic kidney disease, or unspecified chronic kidney disease; E11.22 Type 2 diabetes mellitus with diabetic chronic kidney disease; E11.65 Type 2 diabetes mellitus with hyperglycemia; N18.9 Chronic kidney disease, unspecified; R74.8 Abnormal levels of other serum enzymes; Z79.4 Long term (current) use of insulin; Z87.891 Personal history of nicotine dependence; Z95.5 Presence of coronary angioplasty implant and graft; E78.5 Hyperlipidemia, unspecified; E66.9 Obesity, unspecified; Z68.41 Body mass index [BMI] 40.0-44.9, adult; Z79.82 Long term (current) use of aspirin; Z79.899 Other long term (current) drug therapy
CPT/HCPCS: 96366; 96376; 96365; 99285; 36415; 93005; 93306; 83880; 80061; 80053; 82550 ×2; 82553 ×2; 83735; 84484 ×2; 85025; 85610; 85730 ×2; 81003; 83036; 71046; G0378 ×2; J1644 ×2; Q9950

== ENCOUNTER 2018-09-19 09:15 | Day surgery (SDC) | payer BC ==
[2018-09-17 15:15] VITALS: BMI 43.7
[~2018-09-19 09:15] MED LIST: ALPRAZolam 0.25 MG TAB PO PRN; ALPRAZolam 0.5 MG TAB PO PRN; ASPIRIN 325 MG TAB PO STA; ATORVASTATIN 80 MG TAB PO STA; NITROGLYCERIN SL TABS 0.4 MG TAB SUBLINGUAL PRN; SODIUM CHLORIDE 0.9% 1,000 ML in EMPTY BAG 1 BAG IV ONE
[2018-09-19 09:34] VITALS: TEMP 97
[2018-09-19] MEDS ORDERED: SODIUM CHLORIDE 0.9% 1,000 ML IV ONE (09:45)
[2018-09-19] MEDS ORDERED: INSULIN ASPART (NovoLOG) 100 UNIT/ML VIAL SQ ONE ×2 (09:47→12:11)
[2018-09-19] MEDS ORDERED: MIDAZOLAM 2 MG/2 ML VIAL IVP ONE (10:47)
[2018-09-19] MEDS ORDERED: LIDOCAINE 1% (PF) 10 MG/ML (30 ML SDV) SQ ONE (10:52)
[2018-09-19] MEDS: VERAPAMIL SYRINGE (5 MG/10 ML) INTRAARTER ONE ×2 (10:56→11:20)
[2018-09-19] MEDS ORDERED: IOPAMIDOL-370 100ML BTL INJ ONE (11:17)
[2018-09-19 11:45] LABS: Basophils % (A) 1 %; Eosinophils # (A) 0.5 k/uL (0-0.7); Eosinophils % (A) 5 %; HCT 34.2 % (39.0-53.0); HGB 11.1 gm/dL (13.0-17.5); Lymphocytes # (A) 2.5 k/uL (1.0-4.8); Lymphocytes % (A) 30 %; MCH 31.7 pg (25.0-35.0); MCHC 32.5 g/dL (31.0-37.0); MCV 97.3 fL (80.0-100.0); Mean Platelet Volume 8.6; Monocytes # (A) 0.5 k/uL (0-1.0); Monocytes % (A) 6 %; Neutrophils # (A) 4.7 k/uL (1.3-7.7); Neutrophils % (A) 56 %; Platelet Count 161 k/uL (150-450); RBC 3.51 m/uL (4.30-5.90); RDW 14.6 % (11.5-15.5); WBC 8.4 k/uL (3.8-10.6)
[2018-09-19] MEDS ORDERED: SODIUM CHLORIDE 0.9% 1,000 ML IV SCH (11:45)
[2018-09-19 11:56] LABS: Glucose,Whole Blood 350 mg/dL (75-99)
[2018-09-19] MEDS ORDERED: ACETAMINOPHEN TAB 325 MG TAB PO PRN (11:56)
[2018-09-19 12:09] VITALS: RESP 16
[2018-09-19 12:28] LABS: Calcium 10.1 mg/dL (8.4-10.2); Potassium 4.3 mmol/L (3.5-5.1)
--- NOTE | 2018-09-19 12:37 | CC ---
CARDIAC CATHETERIZATION REPORT DATE OF SERVICE: 09/19/2018 PROCEDURE: Left heart catheterization and coronary angiography. PERFORMED BY: Dr. Noam Lamar. Moderate conscious sedation time was 35 minutes. Patient was administered Versed. His oxygen saturation, hemodynamics and EKG were monitored closely. CLINICAL INFORMATION: Mr. Arie Roth is a 63-year-old morbidly obese patient who weighs about 300 pounds, has type 2 diabetes, hypertension, hyperlipidemia, and recently developed CKD with a creatinine in the 1.5 range. He has been having symptoms suggestive of angina with recent hospitalization. He was advised coronary angiography. He underwent a previous PCI of a mid circumflex coronary artery performed in 2006 and in 2007 and performed stenting of the major diagonal branch. His LAD had no significant disease and RCA was a very tortuous, disease-free vessel. He was advised to have coronary angiography, given his symptoms of unstable angina and recent hospitalization. Risks, benefits, options, rationale were given. The patient was very well hydrated orally as well as IV and brought in for the procedure. PROCEDURE NOTE: Under local anesthesia and strict aseptic precautions, a 6-Erit[place]an introducer placed in the right radial artery. Patient received 3000 units of heparin intravenously. I used a standard JL4 and JR4 catheters. I performed coronary angiography and the same right catheter was used to check LV pressures. LV gram was not performed. The sheath was taken out and TR band applied as per protocol and saturation of the fingers of the right hand was about 96%. He was sent to the room in stable condition. Results were discussed with the patient and family. CARDIAC CATHETERIZATION FINDINGS: The left ventricular end-diastolic pressure was about 16 to 18 mmHg without any gradient across aortic valve. CORONARY ANGIOGRAPHY FINDINGS: RIGHT CORONARY ARTERY: This is a dominant vessel, extremely tortuous. At least there are 2 hairpin bends and in the mid portion after the second hairpin bend, the vessel is subtotally occluded with very limited antegrade flow. There is an acute marginal branch that comes off that has significant areas of disease of 70% to 90% within the acute marginal branch which is not new. The subtotal occlusion of mid RCA dominant vessel is a new finding compared to the study from 2018. Very little antegrade flow is noted. The rest of the right coronary artery is being filled by collaterals from the left system. LEFT MAIN CORONARY ARTERY: Short patent calcified vessel that bifurcates into LAD and circumflex. LEFT ANTERIOR DESCENDING CORONARY ARTERY: Good caliber vessel is large. It gives off a good-sized diagonal branch which has 2 branches again. Within this inferior diagonal branch we have stented, the stented segment is widely patent with good flow. No significant disease within the stented segment. Diagonal has no more than 40% narrowing. The LAD beyond the diagonal is small in caliber, runs all the way to the apex, gives off several septal and smaller diagonal branches and there are lesions of up to 35% to 45% within the LAD, but no critical lesions were noted. LEFT POSTERIOR CIRCUMFLEX CORONARY ARTERY: This is a very tortuous, nondominant vessel that has 2 acute bends and after that, there is a straighter segment. In the straight segment, I performed stenting in 2006. The stented segment is widely patent. Beyond the stented segment, the vessel trifurcates into 3 branches. The second branch of fair caliber has a 70% to 80% stenosis. The first branch has a 40% stenosis and the third branch has another 60% to 70% narrowing. The 3 branches of circumflex therefore have moderate disease. The middle branch is the tightest with 70% to 80% narrowing. This is a nondominant fair caliber fair distribution vessel. COLLATERAL CIRCULATION:There is a rich network of collaterals opacifying the distal RCA and its branches. FINAL IMPRESSION: This patient has significant progression of disease. The previously stented mid circumflex and diagonal branch are widely patent. The dominant RCA now has a subtotal distal occlusion with limited antegrade flow and is a very tortuous vessel with two hairpin bends. The LAD has about a 40% to 45% mid lesion and a long area of narrowing. The stented diagonal is widely patent. The mid circumflex that was stented is patent but the distal 3 branches have disease. The middle branch is 70% to 80% narrowing; the proximal branch is a 50% to 60% narrowing and third branch the distal branch has another 60% narrowing. There is progression of disease in the nondominant circumflex and RCA is subtotally occluded LAD and diagonals are free of significant disease and mid circumflex has no significant disease at the site of stenting. RECOMMENDATIONS: Percutaneous intervention is a very high-risk procedure technically difficult and challenging given the tortuosity. I explained this to the patient and family. I will review the angiograms and seek at least another opinion. The patient was administered the least amount of dye and he will be hydrated and discharged later on today and I will check his creatinine in the next 72 hours. I will seek another opinion from the [facility] specialist and then make further recommendations. Patient will be discharged today. MARY / CHASTITY: [id number] /
[2018-09-19 16:04] VITALS: BP 152/78; PULSE 63
[2018-09-19] MEDS ORDERED: METOPROLOL TARTRATE 50 MG TAB PO SCH (21:00)
[2018-09-20] MEDS ORDERED: ASPIRIN 81 MG PO SCH (09:00)
[2018-09-20] MEDS ORDERED: METOPROLOL TARTRATE 25 MG TAB PO SCH (09:00)
[2018-09-22 07:25] LABS: Glucose,Whole Blood 355 mg/dL (75-99)
== END 2018-09-19 16:34 | disposition home or self-care (01) ==
LOC: CATHCVL 09:15
PROVIDERS: ATTEND Internal Medicine Interventional Cardiology
DX: I25.110 Atherosclerotic heart disease of native coronary artery with unstable angina pectoris (principal); I25.84 Coronary atherosclerosis due to calcified coronary lesion; I12.9 Hypertensive chronic kidney disease with stage 1 through stage 4 chronic kidney disease, or unspecified chronic kidney disease; E11.22 Type 2 diabetes mellitus with diabetic chronic kidney disease; N18.2 Chronic kidney disease, stage 2 (mild); Z87.891 Personal history of nicotine dependence; E66.01 Morbid (severe) obesity due to excess calories; Z68.41 Body mass index [BMI] 40.0-44.9, adult; E78.5 Hyperlipidemia, unspecified; E78.00 Pure hypercholesterolemia, unspecified; Z98.890 Other specified postprocedural states; Z79.82 Long term (current) use of aspirin; Z79.4 Long term (current) use of insulin; Z79.899 Other long term (current) drug therapy; Z88.8 Allergy status to other drugs, medicaments and biological substances
CPT/HCPCS: 93458; 80048; 85025; C1769; C1894; J2250; J2001; J1644; Q9967

== ENCOUNTER → 2018-09-22 | Outpatient (CLI) | payer BC ==
[2018-09-22 13:25] LABS: HCT 35.6 % (39.0-53.0); HGB 11.6 gm/dL (13.0-17.5); MCHC 32.4 g/dL (31.0-37.0); MCV 98.7 fL (80.0-100.0); Mean Platelet Volume 7.9; Platelet Count 161 k/uL (150-450); RBC 3.61 m/uL (4.30-5.90); RDW 14.6 % (11.5-15.5); WBC 9.3 k/uL (3.8-10.6)
[2018-09-22 18:46] LABS: Calcium 10.4 mg/dL (8.7-10.3); Potassium 4.4 mmol/L (3.5-5.5)
== END | disposition home or self-care (01) ==
LOC: LABWHC1 11:17
PROVIDERS: ATTEND Internal Medicine Interventional Cardiology
DX: E11.22 Type 2 diabetes mellitus with diabetic chronic kidney disease (principal); N18.9 Chronic kidney disease, unspecified
CPT/HCPCS: 36415; 80048; 85027

== ENCOUNTER → 2018-10-07 | Outpatient (CLI) | payer BC ==
[2018-10-07 07:03] LABS: HCT 37.6 % (39.0-53.0); HGB 12.3 gm/dL (13.0-17.5); MCH 31.8 pg (25.0-35.0); MCHC 32.6 g/dL (31.0-37.0); MCV 97.6 fL (80.0-100.0); Mean Platelet Volume 7.3; Platelet Count 217 k/uL (150-450); RBC 3.86 m/uL (4.30-5.90); RDW 14.8 % (11.5-15.5); WBC 8.4 k/uL (3.8-10.6)
[2018-10-07 12:36] LABS: Anion Gap 12.6 mmol/L (4.00-12.00); Calcium 9.7 mg/dL (8.7-10.3); Carbon Dioxide 25.4 mmol/L (21.6-31.8); LDL Cholesterol,Calculated 127.6 mg/dL (0.0-131.0); Potassium 3.9 mmol/L (3.5-5.5); VLDL Calculation 42.4 mg/dL (5.00-40.00)
[2018-10-07 13:50] LABS: Hemoglobin A1C 10.2 % (4.0-6.0)
== END | disposition home or self-care (01) ==
LOC: LABWHC1 06:39
PROVIDERS: ATTEND Internal Medicine Interventional Cardiology
DX: I25.10 Atherosclerotic heart disease of native coronary artery without angina pectoris (principal); E11.9 Type 2 diabetes mellitus without complications
CPT/HCPCS: 36415; 80048; 80061; 83036; 84450; 84460; 85027

== ENCOUNTER → 2018-11-03 | Outpatient (CLI) | payer BC ==
[2018-11-03 23:44] LABS: Anion Gap 10.2 mmol/L (4.00-12.00); Carbon Dioxide 26.8 mmol/L (21.6-31.8); Potassium 3.9 mmol/L (3.5-5.5)
== END | disposition home or self-care (01) ==
LOC: LABWHC1 16:25
PROVIDERS: ATTEND Nurse Practitioner
DX: E78.00 Pure hypercholesterolemia, unspecified (principal); I25.10 Atherosclerotic heart disease of native coronary artery without angina pectoris
CPT/HCPCS: 36415; 80048; 83735

== ENCOUNTER → 2019-04-06 | Outpatient (CLI) | payer BC ==
--- NOTE | 2019-04-06 15:32 | XR ---
EXAM TYPE: LUMBAR SPINE X RAY SERIES COMPARISON: NONE HISTORY: Pain down both legs TECHNIQUE: 4 views are submitted. FINDINGS: Alignment is anatomic. The pedicles are intact. The transverse processes are intact. There is no s pondylolysis or spondylolisthesis. Hypertrophic and degenerative change of the spine. Vascular calci fications noted. Multilevel facet arthropathy. IMPRESSION: 1. Multilevel hypertrophic and degenerative change.
--- NOTE | 2019-04-06 15:33 | XR ---
EXAMINATION TYPE: XR cervical spine limited DATE OF EXAM: 04/06/2019 COMPARISON: NONE HISTORY: Pain TECHNIQUE: Four views are submitted. FINDINGS: The odontoid is intact. There are no compression deformities. The prevertebral soft tissue structur es are within normal limits. There are large anterior bridging osteophytes at all levels. Multilevel facet arthropathy and degenerative disc disease noted. Calcifications are seen in the soft tissues o f the neck likely related to atherosclerotic change of the carotid artery. IMPRESSION: 1. Multilevel degenerative disc disease with large hypertrophic bridging spurs at all levels anterior ly. Recommend follow-up MRI..
== END | disposition home or self-care (01) ==
LOC: RADXRMAIN 15:00
PROVIDERS: ATTEND Family Medicine
DX: M50.30 Other cervical disc degeneration, unspecified cervical region (principal); M47.816 Spondylosis without myelopathy or radiculopathy, lumbar region
CPT/HCPCS: 72040; 72100

== ENCOUNTER → 2019-09-04 | Outpatient (CLI) | payer BC ==
--- NOTE | 2019-09-07 08:27 | MR ---
Right elbow MRI HISTORY: Pain Multiplanar multisequence imaging through the right elbow Correlation plain film 07/03/2019 Patient unable to complete the exam. There is no sizable joint effusion. Enthesophyte present at the insertion of triceps tendon which is intact. Subcutaneous edema changes are present. Hypertrophic changes are noted. Grade 2 to grade III chondromalacia present in the lateral compartment greater than medial compartment abnormal increased signal is also present within the origin of the common extensor tendon, fluid signal also present at this level. At the level of the common flexor tendon origin increased signal is also present, thicken ing is present of the tendons, ossific densities present at the level of these origins bilaterally co rrelating with plain film. There is abnormal increased signal present at the insertion of the biceps tendon at the proximal radius. Ossific density is present just peripheral to this level as noted on p kiesha film, findings could represent a chronic avulsion injury. Bone marrow signal is maintained. IMPRESSION: Flexor tendon and common extensor tendon tendinosis, calcific tendinitis, possible partia l tear of the common extensor tendon. Osteoarthritis. Findings suggest chronic avulsion injury of the biceps tendon from the proximal radius, correlate for weakness. Subcutaneous edema. No sizable joint effusion.
== END | disposition home or self-care (01) ==
LOC: RADMRIMAIN 21:05
PROVIDERS: ATTEND Family Medicine
DX: M19.021 Primary osteoarthritis, right elbow (principal); R60.0 Localized edema; M21.221 Flexion deformity, right elbow